=== PATIENT | female | born 2000 | race Caucasian/White ===

== ENCOUNTER 2024-06-28 19:42 | Emergency (ER) | payer MEDICAID, SELFPAY ==
[2024-06-28 19:49] VITALS: BP 142/103; PULSE 119; RESP 19; TEMP 36.2; O2SAT 98
[2024-06-28 19:54] VITALS: BP 142/103; PULSE 119; RESP 19; TEMP 36.2; O2SAT 98
[2024-06-28] MEDS: Dexamethasone 10 MG/ML VIAL PO (20:24)
[2024-06-28 20:36] VITALS: BP 137/94; PULSE 72; RESP 16; O2SAT 100
--- NOTE | 2024-06-28 22:26 | ED.GENADUL_ITS ---
Discharge Plan Disposition Patient Disposition: Home Condition: Stable Discharge Details Clinical Impression: Throat discomfort Primary Care Provider: Sandip Ham III ED Provider: Roopa Vitale Home Meds and New Rx's Prescriptions: New dexamethasone 4 mg tablet 4 mg PO DAILY Qty: 2 0RF Rx Instructions: take one tablet every other day as needed for sore throat Continued sumatriptan succinate [Imitrex] 25 MG tablet 25 mg PO ONCE PRN Discharge Instructions Instructions: Sore Throat, Adult ED Additional Instructions: Please follow-up with primary care physician 1 to 2 days for reassessment I am giving you a dose of steroid this last for 72 hours, if you only have mild improvement in symptoms he may repeat the dose in 24 hours Continue on the medications that are you taking at home Make sure you are having at least eight 8 ounce glasses of water or fluid daily Return earlier should you have new or worsening complaints Referrals: Sandip Ham III [Primary Care Provider] - 1 day HPI General Date/Time Provider Initiated Documentation: 06/28/24 19:52 . HPI Narrative: This 24-year-old female presents with report of throat discomfort for the past 4 days. States she has had runny nose denies any fever or chills. States she has been taking Sudafed with some relief in symptoms. She denies any globus sensation or change in phonation. She denies any shortness of breath rashes or lesions. Has been able to eat and drink small amounts at home per patient. Related Data Home Medications ?Medication ?Instructions ?Recorded ?Confirmed sumatriptan succinate 25 mg tablet 25 mg PO ONCE PRN 04/18/15 06/28/24 (Imitrex) dexamethasone 4 mg tablet 4 mg PO DAILY #2 tabs 06/28/24 Previous Rx's ?Medication ?Instructions ?Recorded dexamethasone 4 mg tablet 4 mg PO DAILY #2 tabs 06/28/24 Allergies Allergy/AdvReac Type Severity Reaction Status Date / Time No Known Allergies Allergy Verified 06/28/24 19:47 General Stated Complaint: Sorethroat LUIS DANIEL: 4 Exam Narrative Exam Narrative: This 24-year-old female is anxious but in no acute distress, oropharynx patent, uvula midline, maintaining secretions, no angioedema, submandibular lymphadenopathy without occipital lymphadenopathy, no meningismus, no stridor, cardiac rate rhythm regular, no abdominal tenderness oriented x 4 Course Vital Signs Vital signs: Vital Signs Temperature 36.2 C L 06/28/24 19:49 Pulse 119 H 06/28/24 19:49 Respiratory Rate 19 06/28/24 19:49 Blood Pressure 142/103 H 06/28/24 19:49 Pulse Oximetry 98 06/28/24 19:49 Temperature 36.2 C L 06/28/24 19:54 Temperature Source Temporal Artery Scan 06/28/24 19:54 Pulse 72 06/28/24 20:36 Respiratory Rate 16 06/28/24 20:36 Respiratory Effort Normal 06/28/24 19:54 Blood Pressure 137/94 H 06/28/24 20:36 Blood Pressure Position Sitting 06/28/24 19:54 Pulse Oximetry 100 06/28/24 20:36 Oxygen Delivery Method Room Air 06/28/24 19:54 Oxygen Flow Rate 0 06/28/24 19:49 Pain Level 4 06/28/24 19:54 Lab/Test Results Lab/Test Results: 06/28/24 19:55 Pharynx Group A Streptococcus Culture - Pending POC Strep Test-PABLO(Rapid) Start: 06/28/24 20:02 Freq: .Rapid Strep Test Status: Active Protocol: Document 06/28/24 20:03 CB (Rec: 06/28/24 20:03 [id number]) Strep test-PABLO(Rapid)-POC POC-Strep test-PABLO (Rapid) Negative POC-Strep test-PABLO (Rapid) Negative Medical Decision Making This 24-year-old female presents with report of sore throat, no acute distress, oropharynx patent, strep negative, culture pending, very low suspicion clinically for mononucleosis based on clinical assessment and exam. Will give patient a dose of Decadron to see if it helps with discomfort and return precautions reviewed and patient expressed understanding, no evidence of anaphylaxis or allergic reaction on my exam today. Quality:SDOH Health Related Social Needs: No Data to Display PFSH All Active Problems (Updated 06/28/24 @ 20:23 by ALTA Duran) Throat discomfort (Acute) Social History Smoking/Tobacco Use Status: Never Smoking risk assessment performed?: Yes Drug use: Never Substance use type: does not use Housing: house
== END 2024-06-28 20:36 | disposition home or self-care (01) ==
PROVIDERS: Emergency Provider Physician Assistant; PCP Pediatrics
DX: J02.9 Acute pharyngitis, unspecified (principal); F41.9 Anxiety disorder, unspecified
CPT/HCPCS: 87880; 99283; 87081; J1100

== ENCOUNTER 2024-06-29 19:02 | Emergency (ER) | payer MEDICAID, SELFPAY ==
[2024-06-29 19:05] VITALS: BP 132/81; PULSE 101; RESP 20; TEMP 37.2; O2SAT 99
[2024-06-29 19:22] VITALS: BP 132/68; PULSE 101; RESP 18; TEMP 37.2; O2SAT 98
--- NOTE | 2024-06-29 19:34 | W.ED.GENAD ---
Discharge Plan Disposition Patient Disposition: Home Condition: Good Discharge Details Chief Complaint: GenMedical Clinical Impression: Acute upper respiratory infection, Acute hypokalemia Primary Care Provider: Sandip Ham III ED Provider: Chandrakant Sarmiento Home Meds and New Rx's Prescriptions: No Action sumatriptan succinate [Imitrex] 25 MG tablet 25 mg PO ONCE PRN dexamethasone 4 mg tablet 4 mg PO DAILY Qty: 2 0RF Rx Instructions: take one tablet every other day as needed for sore throat Discharge Instructions Instructions: Upper Respiratory Infection ED Additional Instructions: At this time your workup has returned very reassuring. Please take 800 mg of ibuprofen every 6 hours and 1000 mg of Tylenol every 6 hours. You can take these together. These are the maximum doses. Please do this for the next 24 to 48 hours to help with your mild sore throat. You will be contacted if any of your tickborne illness testing returns positive. Please drink plenty of fluids, I recommend 10 to 12 cups of water and/or electrolyte solution per day minimum. If you notice any worsening of your symptoms, or any new symptoms such as vomiting, diarrhea, fever, chills, shortness of breath, chest pain, numbness, weakness, or fainting , please return immediately to the emergency department for reevaluation. Please follow up with your primary care provider as soon as possible for reassessment and reevaluation. As always, it was a pleasure participating in your medical care today. Referrals: Sandip Ham III [Primary Care Provider] - [facility] General Date/Time Provider Initiated Documentation: 06/29/24 19:05. [facility] Narrative: 24-year-old female with no significant past medical history who presents today for evaluation of sore throat. Patient was seen and assessed yesterday, strep test was negative yesterday, she was given a dose of Decadron and she states that her throat is feeling slightly better however she now has mild left-sided headache, and still has some mild persistent sore throat. She denies any fever or chills. She denies any vomiting or diarrhea. She does state that she feels slightly weak and fatigued today. She does not have a significant other, she denies any recent mono contact. She denies any other complaints at this time. No other modifying factors. Patient denies any tick bites this summer. She denies any family history of autoimmune or giant temporal arteritis. She does admit to chronic headaches and migraines. She denies any foreign travel. Related Data Home Medications ?Medication ?Instructions ?Recorded ?Confirmed sumatriptan succinate 25 mg tablet 25 mg PO ONCE PRN 04/18/15 06/29/24 (Imitrex) dexamethasone 4 mg tablet 4 mg PO DAILY #2 tabs 06/28/24 06/29/24 Previous Rx's ?Medication ?Instructions ?Recorded dexamethasone 4 mg tablet 4 mg PO DAILY #2 tabs 06/28/24 Allergies Allergy/AdvReac Type Severity Reaction Status Date / Time No Known Allergies Allergy Verified 06/29/24 19:05 General Stated Complaint: GenMedical LUIS DANIEL: 3 Review of Systems All systems reviewed & are unremarkable except as noted in HPI and below Exam Narrative Exam Narrative: 1.Const: Well-nourished, Well-developed, appearing stated age 2.Eyes: PERRL, no conjunctival injection, and symmetrical lids. 3.ENT: Atraumatic external nose and ears. Dry MM. Neck: Symmetric, trachea midline, No thyromegaly. No erythema in the posterior oropharynx. Patient demonstrates good movement of cervical neck. There is no nuchal rigidity, no nuchal tenderness. Patient is able to flex the neck without any difficulty or significant pain. Negative Kernig's and Brudzinski sign. 4.CVS: +S1/S2, No murmurs or gallops. Peripheral pulses 2+ and equal in all extremities. Brisk capillary refill in all extremities. 5.RESP: Unlabored respiratory effort. Clear to auscultation bilaterally. No wheezes rales or rhonchi 6.GI: Soft, Nontender/Nondistended, No hepatosplenomegaly. No guarding or rebound. 7.MSK: Normocephalic/Atraumatic, Extremities w/o deformity or ttp No cyanosis or clubbing, Normal movement of all extremities 8.Skin: Warm, Dry. No rashes or lesions. 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 Sensation grossly intact, no focal neurologic deficits. 10.Psych: (AAO) x3. Appropriate mood and affect Course Vital Signs Vital signs: Vital Signs Temperature 37.2 C 06/29/24 19:05 Pulse 101 H 06/29/24 19:05 Respiratory Rate 20 06/29/24 19:05 Blood Pressure 132/81 06/29/24 19:05 Pulse Oximetry 99 06/29/24 19:05 Temperature 37.2 C 06/29/24 19:22 Temperature Source Oral 06/29/24 19:22 Pulse 101 H 06/29/24 19:22 Respiratory Rate 18 06/29/24 19:22 Respiratory Effort Normal, Non-Labored 06/29/24 19:26 Respiratory Depth Normal 06/29/24 19:26 Respiratory Pattern Normal 06/29/24 19:26 Blood Pressure 132/68 06/29/24 19:22 Blood Pressure Position Sitting 06/29/24 19:05 Pulse Oximetry 98 06/29/24 19:22 Oxygen Delivery Method Room Air 06/29/24 19: Oxygen Flow Rate 0 06/29/24 19:05 Pain Level 6 06/29/24 19:05 Medical Decision Making 24-year-old female with no significant past medical history who presents today for evaluation of sore throat. Patient was seen and assessed yesterday, strep test was negative yesterday, she was given a dose of Decadron and she states that her throat is feeling slightly better however she now has mild left-sided headache, and still has some mild persistent sore throat. She denies any fever or chills. She denies any vomiting or diarrhea. She does state that she feels slightly weak and fatigued today. She does not have a significant other, she denies any recent mono contact. She denies any other complaints at this time. No other modifying factors. Patient denies any tick bites this summer. She denies any family history of autoimmune or giant temporal arteritis. She does admit to chronic headaches and migraines. She denies any foreign travel. Exam demonstrates well-appearing female, no splenomegaly, no nuchal rigidity. No rash no erythema in the posterior oropharynx, no other abnormalities. She is mildly tachycardic, mucous membranes are notably dry though. Suspect mild dehydration. Symptoms inconsistent with giant cell arteritis, meningitis, mono, strep throat, sepsis. Differential does include tickborne illness, more likely a benign viral etiology. Will test for COVID flu and RSV. We will test for tickborne illnesses. Symptoms inconsistent with intracranial aneurysm tumor or mass. Will give a liter of fluid, IV Toradol and Benadryl to help with a headache. Will monitor closely and reassess. 8:57 PM Patient's COVID flu and RSV test is negative. CBC shows minimal white count at 11, no bandemia. Electrolytes normal aside for potassium at slightly low at 3.2. Pending tickborne illness results. Patient otherwise feels better after fluid and Toradol. She feels well and feels comfortable going home. Patient was given oral potassium, and will recommend foods that are high in potassium for home use. Recommend continued NSAID therapy and hydration at home. Discussed red flags for which to return. I have extensively reviewed the treatment plan and discharge instructions with the patient and their family. I have addressed all patient concerns at this time. The patient and family was made aware of what symptoms to monitor for that would warrant a return to the emergency department. Discussed the plan with the patient and family, they demonstrate verbal understanding and agreement with our assessment and plan at this time. The documentation in this chart was dictated using [employer] dictation software. Please excuse any dictation errors. Quality:SDOH Health Related Social Needs: No Data to Display PFSH All Active Problems (Updated 06/29/24 @ 20:56 by Chandrakant Sarmiento DO) Acute hypokalemia (Acute) Acute upper respiratory infection (Acute) Throat discomfort (Acute) Social History Smoking/Tobacco Use Status: Never Smoking risk assessment performed?: Yes Drug use: Never Substance use type: does not use Housing: house
[2024-06-29] MEDS: Ketorolac 15 MG/ML VIAL IVP (19:52)
[2024-06-29] MEDS: Lactated Ringers 1,000 ML 1000 ML IV (19:52)
[2024-06-29] MEDS: diphenhydrAMINE 50 MG/ML VIAL 25 MG IVP (19:52)
[2024-06-29 19:55] LABS: COVID-19 PCR Negative (Negative); Influenza A PCR Negative (Negative); Influenza B PCR Negative (Negative); RSV PCR Negative (Negative)
[2024-06-29 19:56] LABS: Source Nasopharynx
[2024-06-29 20:07] LABS: Abs Immature Grans 0.04 10^3/uL (0.0-0.06); Absolute Basophil Count 0.07 10^3/uL (0.0-0.2); Absolute Eosinophil Count 0.01 10^3/uL (0.0-0.7); Absolute Lymphocyte Count 3.51 10^3/uL (1.2-3.4); Absolute Monocyte Count 1.02 10^3/uL (0.1-0.8); Absolute Neutrophil Count 6.41 10^3/uL (1.2-6.7); Basophils % 0.6 %; Eosinophils % 0.1 %; HCT 38.1 % (36.0-46.0); HGB 12.8 g/dL (11.2-15.7); Immature Grans % 0.4 %; Lymphocytes % 31.7 %; MCH 29.8 pg (27.0-33.0); MCHC 33.6 % (32.0-36.0); MCV 89 fL (80-95); Monocytes % 9.2 %; Platelet Count 253 10^3/uL (130-400); RDW 11.9 % (11.7-14.6); RDW-SD 38.3 fL; WBC 11.06 10^3/uL (4.4-10.8)
[2024-06-29 20:33] LABS: ALT 21 U/L (14-59); AST 15 U/L (15-37); Albumin 3.8 g/dL (3.4-5.0); Alkaline Phosphatase 41 U/L (46-116); Anion Gap 11.6 mmol/L (3-11); BUN 7 mg/dL (7-18); Bilirubin, Total 0.33 mg/dL (0.2-1.0); CO2 24.4 mmol/L (21.0-32.0); CREATININE 0.7 mg/dL (0.55-1.02); Calcium 9.5 mg/dL (8.5-10.1); Chloride 103 mmol/L (98-107); Estimated GFR 125.33 (mL/min/1.73m2); Glucose 95 mg/dL (74-106); Potassium 3.2 mmol/L (3.5-5.1); Sodium 139 mmol/L (136-145); Total Protein 7.6 g/dL (6.4-8.2)
[2024-06-29 21:15] VITALS: BP 123/73; PULSE 79; RESP 16; TEMP 37; O2SAT 100
[2024-06-29] MEDS: Potassium Chloride Liquid 20 MEQ PKT (21:18)
[2024-07-01 10:29] LABS: Lyme Ab w Rflx to Lyme Confirm Negative (Negative)
[2024-07-03 21:35] LABS: Anaplasma phagocytophilum Negative (Negative); B. miyamotoi PCR Negative (Negative); Babesia divergens/MO-1 Negative (Negative); Babesia duncani Negative (Negative); Babesia microti Negative (Negative); Ehrlichia chaffeensis Negative (Negative); Ehrlichia ewingii/canis Negative (Negative); Ehrlichia muris eauclairensis Negative (Negative)
== END 2024-06-29 21:28 | disposition home or self-care (01) ==
PROVIDERS: Emergency Provider Student in an Organized Health Care Education/Training Program; PCP Pediatrics
DX: J06.9 Acute upper respiratory infection, unspecified (principal); E87.6 Hypokalemia
CPT/HCPCS: 80053; 87637; 87798; 96361; 96374; 96375; 99284; 85025; 86618; 99283; J1200; J1885

== ENCOUNTER 2024-08-20 17:44 | Emergency (ER) | payer MEDICAID, SELFPAY ==
[2024-08-20 17:45] VITALS: BP 141/85; PULSE 106; RESP 18; TEMP 36.8; O2SAT 97
--- NOTE | 2024-08-20 18:29 | ED.GENADUL_ITS ---
Discharge Plan Disposition Patient Disposition: Home Condition: Improving Discharge Details Chief Complaint: Abd Prob Clinical Impression: Upper abdominal pain Primary Care Provider: Sandip Ham III ED Provider: Rl Bartlett Home Meds and New Rx's Prescriptions: No Action sumatriptan succinate [Imitrex] 25 MG tablet 25 mg PO ONCE PRN norgestimate-ethinyl estradiol [Tri-Sprintec (28)] 0.18/0.215/0.25 mg-35 mcg (28) tablet Patient Comments: TAKE ONE TABLET BY MOUTH EVERY DAY Discharge Instructions Instructions: Abdominal Pain, Adult ED Additional Instructions: Please follow-up with primary care physician. Return to the emergency department for any worsening symptoms HPI General Date/Time Provider Initiated Documentation: 08/20/24 17:46 . HPI Narrative: 24-year-old female presents with decreased appetite right upper quadrant abdominal discomfort into right flank. Denies shortness of breath cough or chest pain. Patient is on exogenous estrogen, denies leg pain or swelling Related Data Home Medications ?Medication ?Instructions ?Recorded ?Confirmed sumatriptan succinate 25 mg tablet 25 mg PO ONCE PRN 04/18/15 08/20/24 (Imitrex) norgestimate-ethinyl estradiol tab 08/20/24 0.18 mg/0.215mg/0.25mg-35 mcg(28)tablet (Tri-Sprintec (28)) Allergies Allergy/AdvReac Type Severity Reaction Status Date / Time Penicillins Allergy Intermediate hives Verified 08/20/24 17:51 General Stated Complaint: Abd Prob LUIS DANIEL: 3 Exam Narrative Exam Narrative: Alert interactive Moist mucous membranes tolerating secretions No respiratory stress no tachypnea, speaking full sentences Abdomen soft, right upper quadrant discomfort right flank discomfort and right lower rib discomfort on examination without point tenderness or peritoneal signs No peripheral edema Course Vital Signs Vital signs: Vital Signs Temperature 36.8 C 08/20/24 17:45 Pulse 106 H 08/20/24 17:45 Respiratory Rate 18 08/20/24 17:45 Blood Pressure 141/85 H 08/20/24 17:45 Pulse Oximetry 97 08/20/24 17:45 Temperature 36.8 C 08/20/24 17:45 Temperature Source Temporal Artery Scan 08/20/24 17:45 Pulse 106 H 08/20/24 17:45 Respiratory Rate 18 08/20/24 17:45 Blood Pressure 141/85 H 08/20/24 17:45 Blood Pressure Position Sitting 08/20/24 17:45 Pulse Oximetry 97 08/20/24 17:45 Oxygen Delivery Method Room Air 08/20/24 17:45 Oxygen Flow Rate 0 08/20/24 17:45 Pain Level 2 08/20/24 17:45 Medical Decision Making 24-year-old female on exogenous estrogen control presents with right upper quadrant pain right flank pain and right lower rib pain; noted to be mildly tachycardic on arrival no hypoxia no tachypnea no peripheral edema. Low levels of daily nausea. Consider biliary colic versus early cholecystitis versus gastritis versus pyelonephritis versus nephrolithiasis versus right lower lobe PE versus pneumonia versus viral illness versus dehydration. Labs meds close reassessment of symptoms if D-dimer is elevated will obtain CT chest abdomen and pelvis otherwise will obtain chest x-ray and CT abdomen pelvis. 22: 25 resting comfortably no acute distress labs and imaging unremarkable. Improved symptomatology. Consider gastritis versus potential biliary colic. Home care instructions and return precautions given. Patient be given primary care follow-up Quality:SDOH Health Related Social Needs: No Data to Display PFSH All Active Problems (Updated 08/20/24 @ 22:26 by Rl Bartlett MD) Upper abdominal pain (Acute) Social History Smoking/Tobacco Use Status: Never Smoking risk assessment performed?: Yes Drug use: Never Substance use type: does not use Housing: house
[2024-08-20] MEDS: ACETAMINOPHEN 1,000 MG/100 ML BAG 400 MG IVPB (18:44)
[2024-08-20] MEDS: Ondansetron 4 MG/2 ML VIAL IVP (18:45)
[2024-08-20 18:53] LABS: Abs Immature Grans 0.02 10^3/uL (0.0-0.06); Absolute Basophil Count 0.08 10^3/uL (0.0-0.2); Absolute Eosinophil Count 0.06 10^3/uL (0.0-0.7); Absolute Lymphocyte Count 3.36 10^3/uL (1.2-3.4); Absolute Monocyte Count 0.54 10^3/uL (0.1-0.8); Absolute Neutrophil Count 3.78 10^3/uL (1.2-6.7); Eosinophils % 0.8 %; HGB 14.4 g/dL (11.2-15.7); Immature Grans % 0.3 %; Lymphocytes % 42.9 %; MCH 29.7 pg (27.0-33.0); MCHC 33.5 % (32.0-36.0); MCV 89 fL (80-95); MPV 12.7 fL (8.0-11.0); Monocytes % 6.9 %; Neutrophils % 48.1 %; Platelet Count 237 10^3/uL (130-400); RBC 4.85 10^6/uL (3.93-5.22); RDW 11.9 % (11.7-14.6); RDW-SD 38.7 fL; WBC 7.84 10^3/uL (4.4-10.8)
[2024-08-20 19:06] LABS: PTT Activated 24.6 sec (23.6-32.8); Prothrombin Time 10.4 sec (9.1-11.1)
[2024-08-20 19:16] LABS: ALT 21 U/L (14-59); AST 18 U/L (15-37); Albumin 4.4 g/dL (3.4-5.0); Alkaline Phosphatase 54 U/L (46-116); Anion Gap 10.4 mmol/L (3-11); BUN 9 mg/dL (7-18); Bilirubin, Total 0.59 mg/dL (0.2-1.0); CO2 26.6 mmol/L (21.0-32.0); CREATININE 0.8 mg/dL (0.55-1.02); Calcium 9.7 mg/dL (8.5-10.1); Chloride 101 mmol/L (98-107); Estimated GFR 106.77 (mL/min/1.73m2); Glucose 87 mg/dL (74-106); Potassium 3.6 mmol/L (3.5-5.1); Sodium 138 mmol/L (136-145); Total Protein 8.6 g/dL (6.4-8.2)
[2024-08-20 19:17] LABS: Troponin I < 4 ng/L (<or=51)
[2024-08-20 19:37] LABS: D-Dimer 239 ng/mlFEU (<500)
[2024-08-20 19:43] LABS: Bilirubin Negative (Negative); Blood Negative (Negative); Clarity Clear (Clear); Glucose Negative (Negative); Ketones 15 mg/dL (Negative); Leukocyte Esterase Negative (Negative); Nitrite Negative (Negative); pH 5.5 (5-8)
--- NOTE | 2024-08-20 19:45 | DI.CT_ITS ---
Exam(s) CT ABDOMEN PELVIS W EXAM: CT ABDOMEN PELVIS W CLINICAL HISTORY: RUQ pain nausea. TECHNIQUE: Imaging Protocol: Axial computed tomography images with coronal and sagittal reformatted images were created and reviewed CONTRAST MATERIAL: Intravenous: Omnipaque-350 100cc Oral: None COMPARISON: No exams were available for comparison FINDINGS: VISUALIZED LUNG BASES: No nodules nor pleural effusions evident. ABDOMEN: There is no ascites. LIVER: There are no focal hepatic lesions evident. No dilated intrahepatic ducts. GALLBLADDER/BILIARY: No obvious gallbladder pathology. CBD is not dilated. PANCREAS: No evidence of pancreatic mass nor dilatation of the pancreatic duct. SPLEEN: Spleen is not enlarged. No obvious intrasplenic lesions. Splenic and portal veins are paten t. ADRENALS: There are no significant adrenal masses. KIDNEYS:No cysts evident. No solid renal masses. No calculi nor hydronephrosis.. ABDOMINAL AORTA: Abdominal aorta is not enlarged. LYMPH NODES:There is no retroperitoneal nor paraaortic adenopathy. ABDOMINAL WALL: No evidence of significant anterior abdominal wall nor inguinal hernia. GI: There is no evidence of bowel obstruction, free air, nor abscess. PELVIS: GI: The cecum is located low just above the urinary bladder, making visualization of the appendix dif ficult. However, is no obvious swollen appendix evident.No evidence of sigmoid diverticulitis. LYMPH NODES: There is no intrapelvic nor inguinal adenopathy. REPRODUCTIVE: Uterus and adnexal regions unremarkable. No free fluid in the pelvis. URINARY BLADDER: Partially collapsed. No obvious intraluminal findings. OSSEOUS: No fractures and no significant osseous lesions. IMPRESSION: 1. No significant findings in the abdomen and pelvis. 2. The appendix is not able to be identified as a separate structure but there are no secondary signs of acute appendicitis. 3. No abnormal adnexal findings and no free fluid evident. RADIATION DOSE DELIVERED: 248.58mGy.cm Total DLP DATA REPOSITORY: All CT scans at this facility are submitted to the National Radiology Data Registry (NRDR) Dose Index Registry (DIR) with the [employer] (ACR). RADIATION OPTIMIZATION: All CT scans at this facility use at least one of these dose optimization te chniques: automated exposure control; mA and/or kV adjustment per patient size (includes targeted exa ms where dose is matched to clinical indication); or iterative reconstruction.
[2024-08-20 19:50] LABS: NT-proBNP 38 pg/mL (<300)
[2024-08-20] MEDS: Omnipaque 350 MG/ML 100 ML BTL IJ (20:22)
[2024-08-20] MEDS: Normal Saline - Diluent 50 ML VIAL IJ (20:22)
--- NOTE | 2024-08-20 21:34 | DI.VRAD_ITS ---
PROCEDURE INFORMATION: Exam: CT Abdomen And Pelvis With Contrast Exam date and time: 08/20/2024 8:20 PM Age: 24 years old Clinical indication: Nausea; Abdominal pain and other: Ruq pain TECHNIQUE: Imaging protocol: Computed tomography of the abdomen and pelvis with contrast. Contrast material: OMNI 350; Contrast volume: 85 ml; Contrast route: INTRAVENOUS (IV); COMPARISON: No relevant prior studies available. FINDINGS: Lungs: Lung bases are clear. Liver: Unremarkable. No mass. Gallbladder and biliary ducts: Unremarkable. No calcified stones. No ductal dilation. Pancreas: Unremarkable. No ductal dilation. Spleen: Unremarkable. No splenomegaly. Adrenal glands: Normal. No mass. Kidneys and ureters: Symmetric renal enhancement without mass. No hydronephrosis. Ureters are normal in course and caliber. Stomach and bowel: No evidence of bowel obstruction. No focal bowel wall thickening allowing for degree of bowel distension. Appendix: No evidence of acute appendicitis. Intraperitoneal space: No free fluid in the abdomen or pelvis. No free air. Vasculature: No abdominal aortic aneurysm or evidence of dissection. There is circumaortic left renal vein, normal variant. Lymph nodes: No pathologically enlarged lymph nodes. Urinary bladder: Unremarkable as visualized. Reproductive: Uterus is retroverted. Otherwise unremarkable as visualized. Bones/joints: Unremarkable. No acute fracture. Soft tissues: No focal abnormality. IMPRESSION: No acute findings. Dictated and Authenticated by: Jed Blank MD. Ordering:CHIARA Shine MD
--- NOTE | 2024-08-20 21:50 | NUR.NOTE ---
Nursing Note:This RN gave report and transfer of care to Javi Sanders RN at this time
[2024-08-20 22:52] VITALS: BP 122/67; PULSE 72; RESP 16; TEMP 36.8; O2SAT 98
[2024-08-20] MEDS: Ondansetron O.D.T. 4 MG TABEF, 3 TABS/BTL PO (22:52)
--- NOTE | 2024-08-23 09:59 | NUR.NOTE ---
Access chart to review workload referral. Nursing Note:
--- NOTE | 2024-08-24 19:49 | NUR.NOTE ---
Accessed chart as I was asked to review an ed referral.Nursing Note:
== END 2024-08-20 22:53 | disposition home or self-care (01) ==
PROVIDERS: Emergency Provider Emergency Medicine; PCP Pediatrics
DX: R10.11 Right upper quadrant pain (principal)
CPT/HCPCS: 80053; 81025; 96365; 96375; 99285; 74177; 81003; 83880; 84484; 85025; 85379; 85610; 85730; 99284; J0131; J2405; J3490

== ENCOUNTER 2025-03-08 01:50 | Outpatient (CLI) | payer MEDICAID, SELFPAY ==
--- NOTE | 2025-03-08 08:15 | DI.RAD_ITS ---
Exam(s) XR KNEE LT 3V AP,LAT,KARLEE EXAM: XR KNEE LT 3V AP,LAT,KARLEE CLINICAL HISTORY: lt knee pain, m25.562. TECHNIQUE: 2D digital imaging was performed of the left knee. Three images were obtained. AP, late ral and PA tunnel views were obtained. COMPARISON: No exams were available for comparison FINDINGS: BONES: No acute fracture is present. No bony destructive lesion is seen. JOINTS: The knee is normally aligned. No joint effusion is seen. No loose body. SOFT TISSUE: Normal. IMPRESSION: Normal radiographs of the left knee. DATA REPOSITORY: RADIATION DOSE DELIVERED:
--- NOTE | 2025-03-08 08:15 | DI.RAD_ITS ---
Exam(s) XR KNEE RT 3V AP,LAT,KARLEE EXAM: XR KNEE RT 3V AP,LAT,KARLEE CLINICAL HISTORY: rt knee pain, m25.561. TECHNIQUE: 2D digital imaging was performed of the right knee. Three views obtained. AP, lateral an d PA tunnel views were obtained. COMPARISON: There are no priors for comparison. FINDINGS: BONES: No acute fracture is present. No bony destructive lesion is seen. JOINTS: The knee is normally aligned. No joint effusion is seen. SOFT TISSUE: Normal. IMPRESSION: Unremarkable radiographs of the right knee. DATA REPOSITORY: RADIATION DOSE DELIVERED:
== END 2025-03-08 02:10 ==
LOC: DI 01:50
PROVIDERS: PCP Nurse Practitioner Family; Visit Provider Nurse Practitioner Family
DX: M25.561 Pain in right knee; M25.562 Pain in left knee
CPT/HCPCS: 73562

== ENCOUNTER 2025-05-07 13:15 | Outpatient (CLI) | payer MEDICAID, SELFPAY ==
[2025-05-07 13:25] LABS: TSH (W/Ref FT4) 0.99 uIU/mL (0.36-3.74)
== END 2025-05-07 13:16 | disposition home or self-care (01) ==
LOC: LBO 13:15
PROVIDERS: PCP Nurse Practitioner Family; Visit Provider Nurse Practitioner Family
DX: F41.8 Other specified anxiety disorders (principal)
CPT/HCPCS: 36415; 84443

== ENCOUNTER 2025-05-19 13:48 | Outpatient (CLI) | payer MEDICAID, SELFPAY ==
--- NOTE | 2025-05-19 13:37 | DI.RAD_ITS ---
Exam(s) XR KNEES MERCHANT ONLY EXAM: XR KNEES MERCHANT ONLY INDICATION: BILATERAL KNEE PAIN. COMPARISON: CR XR KNEE RT 3V AP,LAT,KARLEE from 03/08/2025 CR XR KNEE LT 3V AP,LAT,KARLEE from 03/08/2025 TECHNIQUE: 2D digital imaging was performed. Merchant views of both knees. FINDINGS: The patellofemoral joint spaces are maintained. The patella are normally aligned. No bony deformities of the patella. IMPRESSION: Normal bilateral merchant's view. DATA REPOSITORY: RADIATION DOSE DELIVERED:
== END 2025-05-19 13:49 | disposition home or self-care (01) ==
LOC: DIORS 13:48
PROVIDERS: PCP Nurse Practitioner Family; Visit Provider Student in an Organized Health Care Education/Training Program
DX: M25.561 Pain in right knee (principal); M25.562 Pain in left knee; G89.29 Other chronic pain
CPT/HCPCS: 73565

== ENCOUNTER 2025-08-15 18:08 | Emergency (ER) | payer MEDICAID, SELFPAY ==
[2025-08-15 18:10] VITALS: BP 129/90; PULSE 110; RESP 18; TEMP 36.6; O2SAT 99
--- NOTE | 2025-08-15 21:18 | W.ED.GENAD ---
Discharge Plan Disposition Patient Disposition: Home Condition: Stable Discharge Details Clinical Impression: Pharyngitis Primary Care Provider: Jackeline Barrera ED Provider: Roopa Vitale Home Meds and New Rx's Prescriptions: Continued sumatriptan succinate 100 mg tablet 100 mg PO ONCE PRN hydroxyzine HCl 50 mg tablet 50 mg PO QID PRN norgestimate-ethinyl estradiol [Tri-Sprintec (28)] 0.18/0.215/0.25 mg-35 mcg (28) tablet 1 tab PO DAILY Qty: 84 3RF omeprazole 20 mg capsule,delayed release(DR/EC) 20 mg PO DAILY Qty: 90 3RF Discharge Instructions Instructions: Viral Pharyngitis, Sore Throat, Adult ED Additional Instructions: throat coat tea honey and lemon motrin/tylenol as needed for pain cepacol lozenges for discomfort we will notify you if throat culture returns positive Please return with worsening pain, fever, chills, or should any new concerns arise Stand Alone Forms: Work Release Referrals: Jackeline Barrera APRN [Primary Care Provider, Family Practice] Discharge Data Discharge Date/Time-TO BE ENTERED AT DEPARTURE: 08/15/25 18:38 HPI General Date/Time Provider Initiated Documentation: 08/15/25 18:17. HPI Narrative: This 25-year-old female presents with sore throat for the past 24 hours she had 1 episode of nausea and vomiting this morning she denies any current nausea. She denies known fever or chills. There is a sick contact at work who is cough. Patient states she has had intermittent runny nose. She took a COVID test at home that was negative. She denies any chance of . She does report some red lumps on the back of her throat. States she has pain on the right side when she swallows but denies globus sensation. States she is able to hold down fluids. Related Data Home Medications ?Medication ?Instructions ?Recorded ?Confirmed hydroxyzine HCl 50 mg tablet 50 mg PO QID PRN 10/29/24 08/15/25 sumatriptan succinate 100 mg tablet 100 mg PO ONCE PRN 10/29/24 08/15/25 norgestimate-ethinyl estradiol 1 tab PO DAILY #84 tabs 01/22/25 08/15/25 0.18mg/0.215mg/0.25mg-0.035mg(28)tablet (Tri-Sprintec (28)) omeprazole 20 mg capsule,delayed 20 mg PO DAILY acid reflux #90 caps 04/27/25 08/15/25 release Previous Rx's ?Medication ?Instructions ?Recorded norgestimate-ethinyl estradiol 1 tab PO DAILY #84 tabs 01/22/25 0.18mg/0.215mg/0.25mg-0.035mg(28)tablet (Tri-Sprintec (28)) omeprazole 20 mg capsule,delayed 20 mg PO DAILY acid reflux #90 caps 04/27/25 release Allergies Allergy/AdvReac Type Severity Reaction Status Date / Time Penicillins Allergy Intermediate hives Verified 08/15/25 18:15 General Stated Complaint: Sorethroat LUIS DANIEL: 4 Exam Narrative Exam Narrative: Oropharynx patent uvula midline mild pharyngeal irritation no exudates, no trismus maintaining secretions no evidence of abscess normal phonation Course Vital Signs Vital signs: Vital Signs Temperature 36.6 C 08/15/25 18:10 Pulse 110 H 08/15/25 18:10 Respiratory Rate 18 08/15/25 18:10 Blood Pressure 129/90 08/15/25 18:10 Pulse Oximetry 99 08/15/25 18:10 Temperature 36.6 C 08/15/25 18:10 Temperature Source Oral 08/15/25 18:10 Pulse 110 H 08/15/25 18:10 Respiratory Rate 18 08/15/25 18:10 Blood Pressure 129/90 08/15/25 18:10 Pulse Oximetry 99 08/15/25 18:10 Oxygen Delivery Method Room Air 08/15/25 18:10 Oxygen Flow Rate 0 08/15/25 18:10 Pain Level 4 08/15/25 18:10 Lab/Test Results Lab/Test Results: 08/15/25 18:13 Tonsil - Not Specified Group A Streptococcus Culture - Pending Medical Decision Making Results: Strep negative Patient with pharyngitis for the past 24 hours suspect viral, pending strep culture, offered a dose of Decadron but patient states she had some burning in her epigastrium when taking this previously. 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 Low suspicion clinically for mono, however should symptoms worsen patient is encouraged to have a monotest in 3 assessment in the next 4 to 5 days PFSH All Active Problems (Updated 08/15/25 @ 18:28 by ALTA Duran) Pharyngitis (Acute) Patellofemoral syndrome of both knees (Acute) Acid reflux (Chronic) Knee pain, bilateral (Acute) Rash (Acute) Mixed anxiety and depressive disorder (Acute) Migraine (Chronic) Disorder of patellofemoral joint (Acute) Surgical History Hx of amputation Family History Maternal Uncle Substance use disorder Mother Anxiety Depression Maternal Grandmother Anxiety Breast cancer Ovarian cancer Depression Hypertension Aneurysm 3 stomach, 1 heart, 2 Brain Father Diabetes Depression Anxiety Paternal Grandmother Stomach cancer Brother Depression Social History Smoking/Tobacco Use Status: Never Second Hand Exposure: No Smoking risk assessment performed?: Yes Alcohol Intake: never Drug use: Never Substance use type: does not use Adopted: No Caregiver/Support person: No Foster care: No Household members: none Housing: house Number of Children: 0 number of grandchildren: 0 Communication Needs: None Education Level: high school Do you need help understanding health information?: Never current occupation: none Pets and animals: Yes (4) Pets and animals: cat(s) and dog(s) Sexually active: Yes Do you think of yourself as: straight/heterosexual Current gender identity: female What is your relationship status?: never How often do you talk on the phone with friends or family?: twice per week How often do you get together with friends or relatives?: once per week Do you belong to any clubs or organized social groups?: no Panel score (0-1 are the most socially isolated patients): 1 What type of physical activity do you participate in: none Rylie/Jew: None Seatbelt use: always Helmet use: No 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
== END 2025-08-15 18:38 | disposition home or self-care (01) ==
LOC: ER 18:35
PROVIDERS: Emergency Provider Physician Assistant; PCP Nurse Practitioner Family
DX: J02.9 Acute pharyngitis, unspecified (principal)
CPT/HCPCS: 99283; 99282; 87081